=== PATIENT | female | born 1985 | race Two or more races ===

== ENCOUNTER 2017-03-06 10:25 | Emergency (ER) | payer OTHER ==
[~2017-03-06] VITALS: Ht 162.6 cm; Wt 80.2 kg
[2017-03-06 10:26] VITALS: BP 116/77
[2017-03-06 11:55] LABS: BLOOD UREA NITROGEN 7 mg/dL (7-18)
[2017-03-06 12:00] LABS: IS PT STATUS REG ER OR PRE ER? YES
== END 2017-03-06 12:58 | disposition home or self-care (01) ==
LOC: ED 11:41
DX: F41.1 Generalized anxiety disorder (principal); R06.4 Hyperventilation
CPT/HCPCS: 36415; 71010; 80048; 82040; 83880; 84484; 85025; 93005; 99285